=== PATIENT | male | born 1960 | race Caucasian/White ===

== ENCOUNTER 2019-11-15 11:32 | Outpatient (CLI) | payer MEDICARE, SELFPAY ==
--- NOTE | 2019-11-15 | USCV_ITS ---
Stress Echo Cheryl Clement Age: 59 Gender: M : 1960 Exam Date: 11/15/2019 12:03 Ordering Phys: Lashaun Gill MD ([email or web address]) Technologist: Anival Way [place] [facility] [place]ication: CHEST PAIN Rhythm: Atrial fibrillation Patient History: HTN, DLD, DM TYPE II, GERD, FORMER SMOKER Cardiac Medications: CCB/THAD/HCTZ/STATIN Medications in past 24 hours: Contrast: Stress Results Protocol: Jaiden Total dose(mL): Exercise Duration (min:sec): 5:30 METS: 7 Resting HR: 76 Resting BP: 157 / 70 Peak HR: 136 Peak BP: 237 / 70 Max Predicted HR: 159 86 % Max Predicted HR Target HR: 135 Double Product: [id number] Stress Summary: PATIENT WITH SOB WHILE ON THE TREADMILL. THIS RESOLVED DURING RECOVERY. HE ALSO STATED THAT HE HAD A LITTLE BURN IN HIS CHEST THAT ALSO RESOLVED DURING RECOVERY. BP Response: NORMAL Reason for Termination: TARGET HR REACHED Cardiac Symptoms: SOB, CHEST BURNING ECG Analysis Resting ECG: Stress ECG: Arrhythmia: MEASUREMENTS (Male/Female) Normal Values FINDINGS PROCEDURE: At the baseline, the patient's blood pressure was 157/70 mmHg with a heart rate of 87 bpm. The patient exercised for 5 minutes 30 seconds on a standard Jaiden protocol. Patient attained a maximum heart rate of 159 beats per minute(86 % of the maximum predicted heart rate) with a blood pressure at the peak exercise of 237/70 mm Hg. During the recovery phase, there were no new changes. Echocardiographic pictures were taken at the baseline, immediately following the peak exercise and during the recovery phase. Baseline echocardiogram: Normal left ventricular size and systolic function with ejection fraction estimated at 60 %. No regional wall motion abnormalities. Peak exercise echocardiogram: Normal augmentation of left ventricular systolic function with exercise. No new regional wall motion abnormalities. Recovery echocardiogram: Left ventricular systolic function normalizes. No regional wall motion abnormalities. CONCLUSIONS 1. This is a treadmill stress echocardiogram. 2. Decreased exercise tolerance, attained a maximum of 7 METs. Double product of 32,233. 3. Baseline hypertension with hypertensive response to exercise. 4. Normal echocardiographic response to exercise. 5. Positive EKG response to exercise with ischemic changes noted at peak stress. Lashaun Gill MD (Electronically Signed) Final Date: 17 November 2019 16:59 S
--- NOTE | 2019-11-15 11:52 | ECG_ITS ---
NAME OF STUDY: TREADMILL STRESS ECHOCARDIOGRAM INDICATION: Chest Pain Baseline blood pressure of 157/70 mm Hg, heart rate 78 beats per minute and oxygen saturation 97%. EKG showed normal sinus rhythm, normal axis with nonspecific T wave inversion in lead III, V4 to V6. The patient exercised for 5 minutes 30 seconds on a standard Jaiden protocol. Patient attained a maximum heart rate of 159 beats per minute(85 % of the maximum predicted heart rate) with a blood pressure at the peak exercise of 210/56 mm Hg and oxygen saturation of 91%. The EKG at the peak exercise revealed 1-2 mm horizontal to downsloping ST depression with T wave inversion in lead II, III, aVF, V4 to V6. Patient had burning chest discomfort and shortness of breath with exercise. Frequent PVCs noted during stress. During the recovery phase, there were no new changes. Blood pressure at the end of the recovery phase was 167/48 mm Hg with a heart rate of 90 beats per minute and oxygen saturation of 97%. CONCLUSION: 1. Ischemic EKG response to treadmill exercise. 2. There was exercise-induced chest pain and shortness of breath. 3. Decreased exercise tolerance, attained a maximum of 7 METs. 4. Baseline hypertension with hypertensive response to exercise. 5. Maximum VO2 of 24.5 mL/kg/min. 6. Echo portion of the study will be documented separately. Electronically Signed On 11-17-2019 16:49:28 CDT by Lashaun Gill M.D. [email or web address]
[2019-11-15 11:53] VITALS: BMI 31.1
[2019-11-15 12:53] VITALS: BP 167/48; PULSE 91
== END 2019-11-15 11:33 | disposition home or self-care (01) ==
LOC: CDL 11:38
PROVIDERS: Family Provider Family Medicine; PCP Family Medicine; Visit Provider Internal Medicine Cardiovascular Disease
DX: R07.9 Chest pain, unspecified (principal)
CPT/HCPCS: 93017; 93350

== ENCOUNTER → 2019-11-22 14:56 | Outpatient (BNVA) | payer MEDICARE, SELFPAY | PROVIDERS: Family Provider Family Medicine; PCP Family Medicine; Visit Provider Family Medicine | DX: E11.9 Type 2 diabetes mellitus without complications (principal) | CPT/HCPCS: 83036 ==

== ENCOUNTER 2019-11-24 07:44 | Day surgery (SDC) | payer MEDICARE, SELFPAY ==
[2019-11-24] VITALS (13 sets, daily range): BP systolic 126–159; BP diastolic 70–85; PULSE 64–74; RESP 17–18; TEMP 36.3–36.5; O2SAT 94–97; BMI 32.0
--- NOTE | 2019-11-24 08:49 | XACV_ITS ---
Exam Room: [facility] Ht: 196 cm Wt: 122 kg BSA: 2.61 m2 Gender: Male : 1960 Any Known Allergies: No known allergies Exam Priority: Routine Procedure(s): Procedure Description: Diagnostic procedure Procedure Description: Left Heart Catheterization Procedure Description: Left ventriculography Procedure Description: Coronary Angiography Diagnostic Cath Status: Elective Diagnostic Findings Patient with several risk factors and atypical chest discomfort. Treadmill stress testing was positive however stress echo did not show any ischemia. Patient recommended for angiography. Coronary angiography reveals right coronary artery dominance. The coronary anatomy is completely normal. Procedure done from the right radial artery. Interventional RX Recommendation: none Diagnostic RX Recommendation: none Anticoagulation: Heparin Ventriculography Ejection Fraction: 65.0 % Pressures Phase:Rest AO : 103 mmHg / 59 mmHg ( 80 mmHg ) @ 5:11:00 AM 107 mmHg / 60 mmHg ( 82 mmHg ) @ 5:12:00 AM 152 mmHg / 72 mmHg ( 105 mmHg ) @ 5:20:00 AM 152 mmHg / 72 mmHg ( 105 mmHg ) @ 5:20:00 AM LV : 178 mmHg / -7 mmHg / @ 5:19:00 AM 169 mmHg / -5 mmHg / @ 5:19:00 AM 174 mmHg / -9 mmHg / @ 5:19:00 AM 168 mmHg / -7 mmHg / @ 5:20:00 AM Valves Phase:DefaultPhase AV : 15.0 mmHg @ 10:27:03 AM AV Mean Gradient: 25.0 mmHg @ 10:27:03 AM Clinical Evaluation EBL: 5mL-10mL Procedural Details Procedure Consent Obtained. Pre-Procedure Time Out. Identified patient by full name and date of as verbalized by the patient/guarantor. Does the consent match the physician's order: Yes. Accurate & Complete Informed Consent: Yes. Inpatient/Outpatient History & Physical on Chart: Yes. If H&P is completed, is and addenduem needed: Yes; If yes, is the addendum complete: Yes. Relevant Radiology Images available: Yes. Pre-op teaching completed and patient verbalized understanding. The risks, benefits, and alternatives of sedation and/or procedure were discussed by physician. The patient agrees to continue. Procedure started. [facility] Clinical Fraility Score: 3: Managing Well. Silk Weaver Indications: Worsening Angina. Silk Weaver Indications: New Onset Angina. Chest Pain Symptom Assessment: Typical Angina Symptoms. Correct patient, site and procedure confirmed by cath team. Current diagnosis: Chest Pain. PERRLA. 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 Lungs clear x 5 lobes. IV Site on Arrival: 18 gauge in the right anticubital. IV Fluids: 0.9% NaCl at KVO. 0 mL infused prior to laborer bituminous paving. Oxygen started at 2liters/min via nasal canula. Baseline sample Acquired. HR: 72 BPM. Physician arrived. Current Diagnosis : Chest Pain. Patient's family unavailable due to visitor restrictions. Baseline sample Acquired. HR: 75 BPM. Physician scrubbed in. Immediate Pre-Procedure Time Out. Correct Patient: Yes; Correct Procedure: Yes; Correct Site: Yes; Correct Patient Position: Yes; Correct Supplies: Yes; Dried Flammable Prep: Yes; Blood Products Available: N/A;. Lidocaine 1% infiltrated to the right radial. Arterial access obtained. A 6 tristanian TIG catheter in over wire. Blood is being drawn from the radial sheath by Dr. Arenas to send to lab. Lab arrived. Multiple views taken of left coronary artery. Catheter redirected to the RCA. Multiple views taken of right coronary artery. Catheter removed over the exchange wire. A 6 tristanian Angled Pig catheter in over wire. EDP Sample taken: LV 178/-8,26; HR: 79 BPM; SpO2: 97%. EDP Sample taken: LV 169/-6,27; HR: 80 BPM; SpO2: 98%. LV gram performed in LIAO @ 10 mL/second for a total of 30 mL. EDP Sample taken: LV 174/-10,27; HR: 76 BPM; SpO2: 97%. Pullback taken: LV 168/-8,23; AO 152/72(105); Mean: 25mmHg, Peak to Peak: 15mmHg, SEP: 8sec/min; HR: 79 BPM; SpO2: 97%. Catheter removed over the exchange wire. Dr. Arenas scrubbed out. TR band placed. Hemostasis obtained. A TR Band was successful obtaining hemostatsis at the Right Radial artery insertion site. Post Procedure: Pulses reassessed and unchanged. PERRLA. 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 No VTE prophylaxis required. Medication's Wasted: Lidocaine 1% = 18 mL. Medication's Wasted: Nitro = 49.8 mg. Medication's Wasted: Heparin = 1000 units. Total IV fluids: 50 mL. Contrast type used: Omnipaque 300 mgI/mL, 500 mL bottle. Post-op diagnosis: Chest Pain. Complications: None. Estimated blood loss: 5mL-10mL. Procedure completed. Patient transferred by wheelchair to [address] [place] [address]. Vital chart was stopped. Site: Right Radial artery Sheath Size: 6 Fr Hemostasis Method: TR Band Hemostasis Success: Successful Procedure Medications Start: 9:53 AM Stop: 9:53 AM Medication: Versed 1 mg and Fentanyl 25 mcg Amount: 1 Route: I.V. Start: 9:53 AM Stop: 9:53 AM Medication: Fentanyl Amount: 25 mcg Start: 9:55 AM Stop: 9:55 AM Medication: Fentanyl Amount: 25 mcg Start: 9:55 AM Stop: 9:55 AM Medication: Versed 1 mg and Fentanyl 25 mcg Amount: 1 Route: I.V. Start: 9:59 AM Stop: 9:59 AM Medication: Versed Amount: 1 mg Route: I.V. Start: 10:07 AM Stop: 10:07 AM Medication: Nitrogylcerin Amount: 200 mcg Start: 10:07 AM Stop: 10:07 AM Medication: Verapamil Amount: 5 mg Route: I.A. Start: 10:08 AM Stop: 10:08 AM Medication: Versed Amount: 1 mg Route: I.V. Start: 10:08 AM Stop: 10:08 AM Medication: Heparin Amount: 5000 units Route: I.V. I, the attending physician, have reviewed and verified all procedure medications. Yes, all medications given per verbal order History/Risk Factors Hypertension: Yes Dyslipidemia: Yes Diabetic Therapy: Oral Peripheral Arterial Disease (PAD): No Myocardial Infarction (TN): No Obesity: No Renal Disease: No Tobacco Use: Former Prior Interventions PCI: No CABG: No Valve Surgery: No Report Signatures Finalized by:Dr. Miguel Angel Arenas MD on 11/24/2019 10:33:43 AM
[2019-11-24] MEDS: sodium chloride 0.9% 1,000 ML 50 ML IV (09:35)
[2019-11-24] MEDS: diphenhydrAMINE 50 mg Capsule PO (09:35)
--- NOTE | 2019-11-24 09:43 | PM.HP ---
Providers/Chief Complaint Admitting Physician: Deepa Primary Care Provider: Js Rdz DO Chief Complaint: Abnormal Stress Test History of Present Illness Cheryl Clement is a 59 year old male who presents as an outpatient today for cardiac catheterization. He saw Dr. Gill on the of last month as a new patient. He has hypertension and diabetes with dyslipidemia. He was having exertional chest pain and shortness of breath. He had just recovered from a bout of acute bronchitis. He underwent a stress echo on the of this month. The echo portion was read as normal however the EKG portion was read as abnormal. Therefore, he was referred for coronary angiography. Review of Systems General: Reports: 10 or more systems reviewed and unremarkable except in HPI and below Medications/Allergies Home Medications Medication Instructions Recorded Confirmed Last Taken Type amlodipine 10 mg tablet 10 mg PO DAILY #90 tab 09/14/19 11/23/19 Unknown Rx aluminum-mag hydroxide-simethicone 5 ml PO QID PRN 10/06/19 11/23/19 Unknown History 400 mg-400 mg-40 mg/5 mL oral susp atorvastatin 10 mg tablet 10 mg PO DAILY 10/06/19 11/23/19 Unknown History benazepril 40 mg tablet 80 mg PO DAILY 10/06/19 11/23/19 Unknown History cholecalciferol (vitamin D3) 1,250 1,250 mcg PO .weekly cap 10/06/19 11/23/19 Unknown History mcg (50,000 unit) capsule glyburide 5 mg tablet 10 mg PO BID tab 10/06/19 11/23/19 Unknown History metformin 1,000 mg tablet 1,000 mg PO BID 10/06/19 11/23/19 Unknown History pioglitazone 15 mg tablet 15 mg PO DAILY 10/06/19 11/23/19 Unknown History nitroglycerin 0.4 mg sublingual 0.4 mg SUBLINGUAL Q5M PRN #1 pkg 11/18/19 11/23/19 Unknown Rx tablet hydrochlorothiazide 12.5 mg PO DAILY 11/23/19 11/23/19 Unknown History Allergies Allergy/AdvReac Type Severity Reaction Status Date / Time No Known Allergies Allergy Verified 10/31/19 09:48 PFSH Acute PFSH: Medical History (Updated 11/24/19 @ 09:46 by Miguel Angel Arenas MD) Acid reflux Back pain Claustrophobia Diabetes Hyperlipidemia Hypertension Insomnia Positive cardiac stress test Social History Smoking and tobacco status: former smoker Quit status (tobacco): has quit using tobacco Year quit tobacco: 1979 Alcohol intake: never Vitals/I&O/Wt Last Vital Signs Temp 97.4 F L 11/24/19 08:31 Pulse 71 11/24/19 08:31 Resp 17 11/24/19 08:31 BP 137/85 11/24/19 08:31 Pulse Ox 97 11/24/19 08:31 Weight last 48 hrs Weight 270 lb Physical Exam Narrative: EXAM NARRATIVE: GENERAL: In general he is comfortable at rest without pain HEENT: Exam within normal limits. NECK: Supple without jugular vein distention. The carotid upstroke is normal without bruits. BACK: Exam normal. LUNGS: Clear. HEART: Regular rate and rhythm. ABDOMEN: Benign without organomegaly or tenderness. EXTREMITIES: No edema. NEUROLOGIC: Exam normal. SKIN: Unremarkable. A&P Assessment and plan (1) Bronchitis: Status: Acute (2) Hypertension: Status: Acute (3) Hyperlipidemia: Status: Acute (4) Diabetes: Status: Acute (5) Positive cardiac stress test: Status: Acute Additional A&P Information Patient will undergo cardiac catheterization due to a history of chest pain and abnormal stress testing. Attestations Medical Necessity Statement*: Outpatient in a bed. 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
[2019-11-24 10:19] LABS: Basophils % 0.4 %; Eosinophils # 0.2 10^3/uL (0.0-0.8); Eosinophils % 2.8 %; Hematocrit 40.1 % (42.0-52.0); Hemoglobin 13.8 g/dL (11.7-16.6); Lymphocytes # 2.7 10^3/uL (0.8-4.8); Lymphocytes % 36.7 %; Mean Corpuscular HGB Conc 34.4 g/dL (30.0-36.0); Mean Corpuscular Hemoglobin 30.3 pg (28.0-34.0); Mean Corpuscular Volume 88.1 fL (80-94); Mean Platelet Volume 10.5 fL (7.4-10.4); Monocytes # 0.6 10^3/uL (0.2-0.9); Monocytes % 7.6 %; Neutrophils # 3.8 10^3/uL (1.8-7.7); Neutrophils % 52.4 %; Nucleated Red Blood Cells % 0 %; Platelet Count 243 10^3/cmm (130-400); Red Blood Count 4.55 10^6/uL (4.1-5.3); Red Cell Distribution Width 11.7 % (12.1-15.1); White Blood Count 7.2 10^3/uL (4.0-10.0)
--- NOTE | 2019-11-24 10:27 | W.PM.OPSUD ---
Surgery/Procedure H&P Update DATE OF PROCEDURE: November 24, 2019 DATE H&P PERFORMED: 11/24/19 H&P UPDATE INFORMATION: I have reviewed H&P completed within last 30 days, I have examined patient prior to procedure and No changes to prior documentation PLANNED PROCEDURE: Operation Date: 11/24/19 08:30 Proposed Procedures p Cardiac Catheterization(Left) - Miguel Angel Arenas MD PATIENT REASSESSED PRIOR TO SEDATION, WITH NO CHANGE NOTED: Yes PHYSICAL EXAM: alert, clear to auscultation bilaterally, regular rate & rhythm and operative site marked AIRWAY EVAL/ANESTHESIA PLAN: normal airway, ASA II, Risks, benefits & alternatives of sedation and/or procedure discussed and Patient agrees to continue as planned
[2019-11-24 10:32] LABS: Blood Urea Nitrogen 15 mg/dL (8-23); Calcium 9.4 mg/dL (8.5-10.5); Carbon Dioxide 27 mmol/L (22-29); Chloride 102 mmol/L (98-107); Glomerular Filtration Rate 114.6 mL/min (90-130); Glucose 190 mg/dL (65-115); Osmolality Calculated 287 mOsm/kg (285-295); Sodium 138 mmol/L (136-145)
[2019-11-24] MEDS: sodium chloride 0.9% 1,000 ML 100 ML IV (10:56)
== END 2019-11-24 13:35 | disposition home or self-care (01) ==
LOC: CCL 07:45 → MEDSURG 07:51
PROVIDERS: Family Provider Family Medicine; PCP Family Medicine; Visit Provider Internal Medicine Cardiovascular Disease
DX: R94.39 Abnormal result of other cardiovascular function study (principal); J40 Bronchitis, not specified as acute or chronic; I10 Essential (primary) hypertension; E78.5 Hyperlipidemia, unspecified; E11.9 Type 2 diabetes mellitus without complications; Z87.891 Personal history of nicotine dependence
CPT/HCPCS: 12345; 80048; 85025; 93452; C1769; C1887; C1894; J1644; J2001; J2250; J3010; J3490; J7030; Q0163; Q9967

== ENCOUNTER → 2019-11-30 09:37 | Outpatient (BNVA) | payer MEDICARE, SELFPAY | PROVIDERS: Family Provider Family Medicine; PCP Family Medicine; Visit Provider Nurse Practitioner Family | DX: E78.5 Hyperlipidemia, unspecified (principal); I10 Essential (primary) hypertension; Z68.31 Body mass index [BMI] 31.0-31.9, adult; E11.9 Type 2 diabetes mellitus without complications; E78.2 Mixed hyperlipidemia | CPT/HCPCS: 80053; 80061; 84439; 84443 ==

== ENCOUNTER → 2020-05-30 10:25 | Outpatient (BNVA) | payer MEDICARE, SELFPAY | PROVIDERS: Family Provider Family Medicine; PCP Family Medicine; Visit Provider Nurse Practitioner Family | DX: E11.9 Type 2 diabetes mellitus without complications (principal) | CPT/HCPCS: 83036 ==

== ENCOUNTER → 2020-07-17 09:00 | Outpatient (BNVA) | payer MEDICARE, SELFPAY | PROVIDERS: Family Provider Family Medicine; PCP Family Medicine; Visit Provider Family Medicine | DX: Z20.828 Contact with and (suspected) exposure to other viral communicable diseases (principal); R05 Cough | CPT/HCPCS: 87400; 87635 ==

== ENCOUNTER → 2020-09-07 09:00 | Outpatient (BNVA) | payer MEDICARE, SELFPAY | PROVIDERS: Family Provider Family Medicine; PCP Family Medicine; Visit Provider Nurse Practitioner Family | DX: E11.9 Type 2 diabetes mellitus without complications (principal); I10 Essential (primary) hypertension | CPT/HCPCS: 80053; 80061; 83036; 85025 ==

== ENCOUNTER → 2021-03-06 09:32 | Outpatient (BNVA) | payer MEDICARE, SELFPAY | PROVIDERS: Family Provider Family Medicine; PCP Family Medicine; Visit Provider Nurse Practitioner Family | DX: E11.9 Type 2 diabetes mellitus without complications (principal); E78.2 Mixed hyperlipidemia; I10 Essential (primary) hypertension; Z68.32 Body mass index [BMI] 32.0-32.9, adult | CPT/HCPCS: 80053; 80061; 83036 ==

== ENCOUNTER → 2021-06-18 15:52 | Outpatient (BNVA) | payer MEDICARE, SELFPAY | PROVIDERS: Family Provider Family Medicine; PCP Family Medicine; Visit Provider Nurse Practitioner Family | DX: R10.10 Upper abdominal pain, unspecified (principal); E11.9 Type 2 diabetes mellitus without complications | CPT/HCPCS: 80053; 82150; 83036; 83690; 85025 ==

== ENCOUNTER → 2021-08-23 11:56 | Outpatient (BNVA) | payer MEDICARE, SELFPAY | PROVIDERS: Family Provider Family Medicine; PCP Family Medicine; Visit Provider Nurse Practitioner Family | DX: R50.9 Fever, unspecified (principal) | CPT/HCPCS: 87400 ==

== ENCOUNTER → 2021-09-09 13:08 | Outpatient (BNVA) | payer MEDICARE, SELFPAY | PROVIDERS: Family Provider Family Medicine; PCP Family Medicine; Visit Provider Nurse Practitioner Family | DX: E11.9 Type 2 diabetes mellitus without complications (principal) | CPT/HCPCS: 83036 ==

== ENCOUNTER → 2021-12-09 09:59 | Outpatient (BNVA) | payer MEDICARE, SELFPAY | PROVIDERS: Family Provider Family Medicine; PCP Family Medicine; Visit Provider Nurse Practitioner Family | DX: I10 Essential (primary) hypertension (principal); E11.9 Type 2 diabetes mellitus without complications | CPT/HCPCS: 80053; 80061; 83036 ==

== ENCOUNTER → 2022-02-19 10:18 | Outpatient (BNVA) | payer MEDICARE, SELFPAY | PROVIDERS: Family Provider Family Medicine; PCP Family Medicine; Visit Provider Nurse Practitioner Family | DX: I10 Essential (primary) hypertension (principal); R01.1 Cardiac murmur, unspecified; Z87.891 Personal history of nicotine dependence | CPT/HCPCS: 99213; 99214 ==

== ENCOUNTER → 2022-03-10 09:12 | Outpatient (BNVA) | payer MEDICARE, SELFPAY | PROVIDERS: Family Provider Family Medicine; PCP Family Medicine; Visit Provider Nurse Practitioner Family | DX: E11.9 Type 2 diabetes mellitus without complications (principal); I10 Essential (primary) hypertension; E78.2 Mixed hyperlipidemia; Z68.32 Body mass index [BMI] 32.0-32.9, adult | CPT/HCPCS: 82043; 83036 ==

== ENCOUNTER 2022-06-05 08:02 | Outpatient (CLI) | payer MEDICARE, SELFPAY ==
--- NOTE | 2022-06-05 08:30 | USCV_ITS ---
Cheryl Clement Age: 62 Gender: M : 1960 Exam Date: 06/05/2022 09:10 Ordering Phys: Radha Rabago Technologist: Justus Crow [place] [facility] [place]: Systolic murmur BP: 172 / 68 HR: 67 Rhythm: Sinus Technical Quality: Adequate MEASUREMENTS (Male / Female) Normal Values 2D ECHO LV Diastolic Diameter PLAX 3.7 cm 4.2 - 5.9 / 3.9 - 5.3 cm LV Systolic Diameter PLAX 2.6 cm IVS Diastolic Thickness 1.1 cm 0.6 - 1.0 / 0.6 - 0.9 cm IVS Systolic Thickness 1.9 cm LVPW Diastolic Thickness 0.8 cm 0.6 - 1.0 / 0.6 - 0.9 cm LVPW Systolic Thickness 1.6 cm LVOT Diameter 2.0 cm LV Ejection Fraction 2D Teich 55.7 % LV Ejection Fraction MOD 2C 56.6 % LV Ejection Fraction 2C AL 65.7 % LA Diameter 4.0 cm LA Width 3.9 cm LA Height 5.2 cm RA Width 3.2 cm RA Height 5.3 cm Aorta at Sinotubular Diameter 2.6 cm M-MODE Aortic Annulus Diameter 2.6 cm LA Ao Ratio MM 1.6 MV E Point Septal Separation 0.6 cm DOPPLER AV Peak Velocity 236.3 cm/s LVOT Peak Velocity 117.0 cm/s AV Area Cont Eq vti 1.5 cm squared AV Area Cont Eq pk 1.6 cm squared MV Peak Velocity 98.0 cm/s MV Area PHT 3.3 cm squared Mitral E to A Ratio 0.8 MV E' Velocity 44.0 cm/s Mitral E to MV E' Ratio 12.9 Mitral E to LV E' Lateral Ratio 11.0 Mitral E to LV E' Septal Ratio 16.0 TR Peak Velocity 197.6 cm/s TR Peak Gradient 15.6 mmHg TR Mean Velocity 152.0 cm/s TR Mean Gradient 10.0 mmHg TR Velocity Time Integral 43.9 cm Right Atrial Pressure 8.0 mmHg Pulmonary Artery Systolic Pressu 23.6 mmHg PV Peak Velocity 92.0 cm/s RV Acceleration Time 0.1 s RV Ejection Time 0.3 s RV AcT/ET 0.4 FINDINGS Left Ventricle Normal left ventricular size, systolic function and wall thickness, with no regional wall motion abnormalities. Left ventricular ejection fraction is estimated at 65 %. Grade II diastolic dysfunction, moderately elevated filling pressures. Right Ventricle Normal right ventricular size and systolic function. Right ventricular systolic pressure 23.6 mmHg. Right Atrium Normal right atrial size. Left Atrium Normal left atrial size. Mitral Valve Mild mitral annular calcification. Mildly thickened mitral valve. No mitral valve stenosis. Trace mitral valve regurgitation. Aortic Valve Mildly thickened and calcified trileaflet aortic valve. Mild aortic valve stenosis, peak velocity 2.4 m/s, peak gradient 23 mm Hg, mean gradient 12 mmHg, NGUYEN 1.5 cm squared. Trace aortic valve regurgitation. Tricuspid Valve Structurally normal tricuspid valve. No tricuspid valve stenosis. Trace tricuspid valve regurgitation. Pulmonic Valve Pulmonic valve not well visualized. No pulmonary valve stenosis. Trace pulmonary valve regurgitation. Pericardium No pericardial effusion. Aorta Normal size aortic root and proximal ascending aorta. IVC Inferior vena cava not visualized. CONCLUSIONS 1. Normal left ventricular size, systolic function and wall thickness, with no regional wall motion abnormalities. Left ventricular ejection fraction is estimated at 65 %. Grade II diastolic dysfunction, moderately elevated filling pressures. 2. Mild aortic valve stenosis, peak velocity 2.4 m/s, peak gradient 23 mm Hg, mean gradient 12 mmHg, NGUYEN 1.5 cm squared. Trace aortic valve regurgitation. 3. No prior similar studies to compare. Lashaun Gill MD (Electronically Signed) Final Date: 08 June 2022 11:14 S
== END 2022-06-05 08:03 | disposition home or self-care (01) ==
LOC: RAD 08:03
PROVIDERS: PCP Family Medicine; Visit Provider Nurse Practitioner Family
DX: R01.1 Cardiac murmur, unspecified (principal); I35.0 Nonrheumatic aortic (valve) stenosis; I51.89 Other ill-defined heart diseases
CPT/HCPCS: 93306

== ENCOUNTER → 2022-06-10 09:44 | Outpatient (BNVA) | payer MEDICARE, SELFPAY | PROVIDERS: Family Provider Family Medicine; PCP Family Medicine; Visit Provider Nurse Practitioner Family | DX: E11.9 Type 2 diabetes mellitus without complications (principal); I10 Essential (primary) hypertension; Z23 Encounter for immunization | CPT/HCPCS: 80053; 80061; 83036 ==

== ENCOUNTER → 2022-07-09 12:01 | Outpatient (BNVA) | payer MEDICARE, SELFPAY | PROVIDERS: Family Provider Family Medicine; PCP Family Medicine; Visit Provider Nurse Practitioner Family | DX: R05.9 Cough, unspecified (principal) | CPT/HCPCS: 71046 ==

== ENCOUNTER → 2022-08-19 11:17 | Outpatient (BNVA) | payer MEDICARE, SELFPAY | PROVIDERS: Family Provider Family Medicine; PCP Family Medicine; Visit Provider Internal Medicine Cardiovascular Disease | DX: I10 Essential (primary) hypertension (principal); Z87.891 Personal history of nicotine dependence | CPT/HCPCS: 99214; Q3014 ==

== ENCOUNTER → 2023-02-23 16:12 | Outpatient (BNVA) | payer MEDICARE, SELFPAY | PROVIDERS: Family Provider Family Medicine; PCP Family Medicine; Visit Provider Family Medicine | DX: I10 Essential (primary) hypertension (principal); I35.0 Nonrheumatic aortic (valve) stenosis; E11.9 Type 2 diabetes mellitus without complications; B34.9 Viral infection, unspecified; E78.5 Hyperlipidemia, unspecified | CPT/HCPCS: 80053; 85025 ==

== ENCOUNTER → 2023-03-03 15:37 | Outpatient (BNVA) | payer MEDICARE, SELFPAY | PROVIDERS: Family Provider Family Medicine; PCP Family Medicine; Visit Provider Internal Medicine Cardiovascular Disease | DX: I10 Essential (primary) hypertension (principal); I35.0 Nonrheumatic aortic (valve) stenosis; R06.02 Shortness of breath; G47.10 Hypersomnia, unspecified; E78.2 Mixed hyperlipidemia; E11.9 Type 2 diabetes mellitus without complications; K21.00 Gastro-esophageal reflux disease with esophagitis, without bleeding; Z87.891 Personal history of nicotine dependence; Z79.4 Long term (current) use of insulin | CPT/HCPCS: 99214 ==

== ENCOUNTER 2023-03-11 09:38 | Outpatient (CLI) | payer MEDICARE, SELFPAY ==
--- NOTE | 2023-03-11 10:00 | USCV_ITS ---
Cheryl Clement Age: 62 Gender: M : 1960 Exam Date: 03/11/2023 10:11 Ordering Phys: Lashaun Gill MD ([email or web address]) Technologist: CT Exam Location: [facility] Indication: Shortness of breath BP: 130 / 77 HR: 67 Rhythm: Sinus Technical Quality: Adequate MEASUREMENTS (Male / Female) Normal Values 2D ECHO LV Chamber Size 4.6 cm RV Chamber Size 4.4 cm LVOT Diameter 2.0 cm LV Ejection Fraction MOD 2C 36.7 % LV Ejection Fraction 2C AL 35.4 % LA Diameter 5.3 cm LA Width 3.5 cm LA Height 5.9 cm RA Width 4.7 cm RA Height 4.9 cm Aorta at Sinotubular Diameter 3.3 cm M-MODE Aortic Annulus Diameter 3.7 cm LA Ao Ratio MM 1.5 MV E Point Septal Separation 0.8 cm DOPPLER AV Peak Velocity 245.0 cm/s LVOT Peak Velocity 118.0 cm/s AV Area Cont Eq vti 1.7 cm squared AV Area Cont Eq pk 1.5 cm squared MV Peak Velocity 103.0 cm/s MV Area PHT 3.1 cm squared Mitral E to A Ratio 0.9 MV E' Velocity 39.0 cm/s Mitral E to MV E' Ratio 11.8 Mitral E to LV E' Lateral Ratio 11.8 Mitral E to LV E' Septal Ratio 11.8 TR Peak Velocity 163.0 cm/s TR Peak Gradient 10.6 mmHg TV Peak E Velocity 95.0 cm/s Right Atrial Pressure 3.0 mmHg Pulmonary Artery Systolic Pressu 13.6 mmHg PV Peak Velocity 113.0 cm/s FINDINGS Left Ventricle Normal left ventricular size and systolic function with no regional wall motion abnormalities. Left ventricular ejection fraction is estimated at 65 %. Normal diastolic function. Right Ventricle Normal right ventricular size and systolic function. Right ventricular systolic pressure 13.6 mmHg. Right Atrium Normal right atrial size. Left Atrium Normal left atrial size. Mitral Valve Mild mitral annular calcification. No mitral valve stenosis. Trace mitral valve regurgitation. Aortic Valve Aortic valve not well visualized. Mild aortic valve stenosis, peak velocity 2.7 m/s, peak gradient 29 mm Hg, mean gradient 14.3 mmHg, NGUYEN 1.7 cm squared. No aortic valve regurgitation. Tricuspid Valve Structurally normal tricuspid valve. No tricuspid valve stenosis. Trace tricuspid valve regurgitation. Pulmonic Valve Pulmonic valve not well visualized. No pulmonary valve stenosis. Trace pulmonary valve regurgitation. Pericardium No pericardial effusion. Aorta Normal size aortic root and proximal ascending aorta. IVC Inferior vena cava not visualized. CONCLUSIONS 1. Normal left ventricular size and systolic function with no regional wall motion abnormalities. Left ventricular ejection fraction is estimated at 65 %. Normal diastolic function. 2. Mild aortic valve stenosis, peak velocity 2.7 m/s, peak gradient 29 mm Hg, mean gradient 14.3 mmHg, NGUYEN 1.7 cm squared. 3. No significant change when compared to study dated 06/05/2022. Lashaun Gill MD (Electronically Signed) Final Date: 18 March 2023 15:22 S
== END 2023-03-11 09:39 | disposition home or self-care (01) ==
PROVIDERS: PCP Family Medicine; Visit Provider Internal Medicine Cardiovascular Disease
DX: I35.0 Nonrheumatic aortic (valve) stenosis (principal); R06.02 Shortness of breath
CPT/HCPCS: 93306

== ENCOUNTER 2023-05-04 20:00 | Outpatient (CLI) | payer MEDICARE, SELFPAY | END 2023-05-04 20:01 | disposition home or self-care (01) | LOC: SLEEP 05-05 05:11 | PROVIDERS: PCP Family Medicine; Visit Provider Internal Medicine Cardiovascular Disease | DX: G47.33 Obstructive sleep apnea (adult) (pediatric) (principal); G47.10 Hypersomnia, unspecified; R06.02 Shortness of breath | CPT/HCPCS: 95810 ==

== ENCOUNTER → 2023-08-19 09:17 | Outpatient (BNVA) | payer MEDICARE, SELFPAY | PROVIDERS: PCP Family Medicine; Visit Provider Nurse Practitioner Family | DX: I10 Essential (primary) hypertension (principal); Z87.891 Personal history of nicotine dependence | CPT/HCPCS: 99213 ==

== ENCOUNTER → 2023-10-16 11:53 | Outpatient (BNVA) | payer MEDICARE, SELFPAY | PROVIDERS: PCP Family Medicine; Visit Provider Nurse Practitioner Family | DX: J34.89 Other specified disorders of nose and nasal sinuses (principal) | CPT/HCPCS: 87400; 87426 ==

== ENCOUNTER → 2023-12-07 10:15 | Outpatient (BNVA) | payer MEDICARE, SELFPAY | PROVIDERS: PCP Family Medicine; Visit Provider Nurse Practitioner Family | DX: E78.2 Mixed hyperlipidemia (principal); E55.9 Vitamin D deficiency, unspecified; E11.9 Type 2 diabetes mellitus without complications; I10 Essential (primary) hypertension | CPT/HCPCS: 80053; 80061; 82306; 83036 ==

== ENCOUNTER 2024-03-22 06:00 | Outpatient (RCR) | payer MEDICARE, SELFPAY | END 2024-04-07 09:35 | disposition home or self-care (01) | LOC: GPT 06:00 | PROVIDERS: Visit Provider Nurse Practitioner Family | DX: M54.9 Dorsalgia, unspecified (principal) | CPT/HCPCS: 97110; 97112; 97140; 97162 ==

== ENCOUNTER 2024-04-03 06:00 | Outpatient (RCR) | payer MEDICARE, SELFPAY | END 2024-05-02 23:59 | disposition home or self-care (01) | LOC: GPT 06:00 | PROVIDERS: Visit Provider Nurse Practitioner Family | DX: M54.9 Dorsalgia, unspecified (principal) | CPT/HCPCS: 97110; 97112; 97140; 97530 ==

== ENCOUNTER 2024-05-03 06:00 | Outpatient (RCR) | payer MEDICARE, SELFPAY | END 2024-06-02 23:59 | disposition home or self-care (01) | LOC: GPT 06:00 | PROVIDERS: Visit Provider Nurse Practitioner Family | DX: M54.9 Dorsalgia, unspecified (principal) | CPT/HCPCS: 97110; 97112; 97140; 97164; 97530 ==

== ENCOUNTER → 2024-06-06 09:25 | Outpatient (BNVA) | payer MEDICARE, SELFPAY | PROVIDERS: PCP Family Medicine; Visit Provider Nurse Practitioner Family | DX: I10 Essential (primary) hypertension (principal); E11.9 Type 2 diabetes mellitus without complications | CPT/HCPCS: 80053; 80061; 83036 ==

== ENCOUNTER → 2024-08-08 13:13 | Outpatient (BNVA) | payer MEDICARE, SELFPAY | PROVIDERS: PCP Family Medicine; Visit Provider Internal Medicine | DX: I10 Essential (primary) hypertension (principal); I35.0 Nonrheumatic aortic (valve) stenosis; E78.2 Mixed hyperlipidemia; E11.9 Type 2 diabetes mellitus without complications; K21.00 Gastro-esophageal reflux disease with esophagitis, without bleeding | CPT/HCPCS: 99214 ==

== ENCOUNTER 2024-08-15 07:15 | Outpatient (CLI) | payer MEDICARE, SELFPAY ==
--- NOTE | 2024-08-15 07:15 | USCV_ITS ---
Cheryl Clement Age: 64 Gender: M : 1960 Exam Date: 08/15/2024 07:40 Ordering Phys: Maximilian Ocampo M.D ([email or web address]) Technologist: Exam Location: [facility] – [place] Indication: as BP: 143 / 75 HR: 83 Rhythm: Sinus Technical Quality: Adequate MEASUREMENTS (Male / Female) Normal Values 2D ECHO LV Diastolic Diameter PLAX 4.9 cm 4.2 - 5.9 / 3.9 - 5.3 cm IVS Diastolic Thickness 1.0 cm 0.6 - 1.0 / 0.6 - 0.9 cm IVS Systolic Thickness 1.6 cm LVPW Diastolic Thickness 1.1 cm 0.6 - 1.0 / 0.6 - 0.9 cm LVPW Systolic Thickness 1.8 cm LVOT Diameter 2.0 cm LV Ejection Fraction 2D Teich 67.9 % LV Ejection Fraction MOD 4C 68.6 % LV Ejection Fraction MOD 2C 51.7 % LV Ejection Fraction 2C AL 55.4 % LA Diameter 4.8 cm RA Systolic Volume 4C AL 48.7 ml RA Systolic Volume 4C MOD 47.8 ml LA Sys Volume AL 63.7 cm cubed LA Sys Volume Index AL 25.5 cm cubed/m squared Aorta at Sinotubular Diameter 3.6 cm DOPPLER AV Peak Velocity 257.0 cm/s LVOT Peak Velocity 78.0 cm/s AV Area Cont Eq vti 1.1 cm squared AV Area Cont Eq pk 1.0 cm squared MV Peak Velocity 108.0 cm/s MV Area PHT 3.7 cm squared Mitral E to A Ratio 1.0 TV Peak Velocity 218.5 cm/s TR Peak Velocity 291.0 cm/s TR Peak Gradient 33.9 mmHg TV Peak E Velocity 95.0 cm/s PV Peak Velocity 130.0 cm/s FINDINGS Left Ventricle Left ventricle is normal in size. LV systolic function is normal with EF of 60-65%. No regional wall motion abnormalities. Right Ventricle Normal in size and function Right Atrium Normal in size Left Atrium Normal in size Mitral Valve Structurally normal mitral valve. Mild mitral regurgitation Aortic Valve Aortic valve is thickened. Mild aortic stenosis with aortic valve area of 1.1cm 2 and mean gradient across aortic valve of 12mmHg. Tricuspid Valve Insufficient TR jet to calculate RVSP Pulmonic Valve Not well visualized Pericardium Normal Aorta Mildly dilated ascending aorta with diameter of 3.5cm IVC Not visualized CONCLUSIONS LV systolic function is normal with EF of 60-65% Mild mitral regurgitation Mild aortic stenosis Mildly dilated ascending aorta with diameter of 3.5cm Maximilian Ocampo MD (Electronically Signed) Final Date: 22 August 2024 19:23 S
== END 2024-08-15 07:26 | disposition home or self-care (01) ==
PROVIDERS: PCP Family Medicine; Visit Provider Internal Medicine
DX: I35.0 Nonrheumatic aortic (valve) stenosis (principal); I34.0 Nonrheumatic mitral (valve) insufficiency; I35.8 Other nonrheumatic aortic valve disorders; I77.819 Aortic ectasia, unspecified site
CPT/HCPCS: 93306

== ENCOUNTER → 2024-08-23 12:08 | Outpatient (BNVA) | payer MEDICARE, SELFPAY | PROVIDERS: PCP Nurse Practitioner Family; Visit Provider Nurse Practitioner Family | DX: M25.511 Pain in right shoulder (principal); W19.XXXA Unspecified fall, initial encounter | CPT/HCPCS: 72110; 73030 ==

== ENCOUNTER → 2024-09-06 10:42 | Outpatient (BNVA) | payer MEDICARE, SELFPAY | PROVIDERS: PCP Nurse Practitioner Family; Visit Provider Orthopaedic Surgery | DX: M43.06 Spondylolysis, lumbar region (principal); M54.50 Low back pain, unspecified; G89.29 Other chronic pain; M54.9 Dorsalgia, unspecified; M48.062 Spinal stenosis, lumbar region with neurogenic claudication | CPT/HCPCS: 99204 ==

== ENCOUNTER → 2024-09-08 09:53 | Outpatient (BNVA) | payer MEDICARE, SELFPAY | PROVIDERS: PCP Nurse Practitioner Family; Referring Provider Orthopaedic Surgery; Visit Provider Nurse Practitioner Family | DX: M43.06 Spondylolysis, lumbar region (principal); G89.29 Other chronic pain; M54.42 Lumbago with sciatica, left side; M48.062 Spinal stenosis, lumbar region with neurogenic claudication; R93.7 Abnormal findings on diagnostic imaging of other parts of musculoskeletal system; Z87.891 Personal history of nicotine dependence | CPT/HCPCS: 99214 ==

== ENCOUNTER → 2024-09-20 09:28 | Outpatient (BNVA) | payer MEDICARE, SELFPAY | PROVIDERS: PCP Nurse Practitioner Family; Visit Provider Nurse Practitioner Family | DX: M79.18 Myalgia, other site (principal); M43.06 Spondylolysis, lumbar region; M48.062 Spinal stenosis, lumbar region with neurogenic claudication; M54.42 Lumbago with sciatica, left side; G89.29 Other chronic pain; R93.7 Abnormal findings on diagnostic imaging of other parts of musculoskeletal system; Z87.891 Personal history of nicotine dependence | CPT/HCPCS: 20553; 99214; J1010; J3490 ==

== ENCOUNTER → 2024-10-04 09:33 | Outpatient (BNVA) | payer MEDICARE, SELFPAY | PROVIDERS: PCP Nurse Practitioner Family; Visit Provider Nurse Practitioner Family | DX: G89.29 Other chronic pain (principal); M54.42 Lumbago with sciatica, left side; M43.06 Spondylolysis, lumbar region; M48.062 Spinal stenosis, lumbar region with neurogenic claudication; R93.7 Abnormal findings on diagnostic imaging of other parts of musculoskeletal system; Z87.891 Personal history of nicotine dependence | CPT/HCPCS: 99213 ==

== ENCOUNTER → 2024-10-12 14:11 | Outpatient (BNVA) | payer MEDICARE, SELFPAY | PROVIDERS: PCP Nurse Practitioner Family; Visit Provider Anesthesiology Pain Medicine | DX: M54.16 Radiculopathy, lumbar region (principal); M54.50 Low back pain, unspecified; G89.29 Other chronic pain; E11.9 Type 2 diabetes mellitus without complications; Z01.818 Encounter for other preprocedural examination | CPT/HCPCS: 36416; 64483; 64484; 82962 ==

== ENCOUNTER → 2024-10-31 14:48 | Outpatient (BNVA) | payer MEDICARE, SELFPAY | PROVIDERS: PCP Nurse Practitioner Family; Visit Provider Anesthesiology Pain Medicine | DX: M43.06 Spondylolysis, lumbar region (principal); G89.29 Other chronic pain; M54.42 Lumbago with sciatica, left side; M48.062 Spinal stenosis, lumbar region with neurogenic claudication; R93.7 Abnormal findings on diagnostic imaging of other parts of musculoskeletal system | CPT/HCPCS: 99214 ==

== ENCOUNTER → 2024-12-06 10:29 | Outpatient (BNVA) | payer MEDICARE, SELFPAY | PROVIDERS: PCP Nurse Practitioner Family; Visit Provider Orthopaedic Surgery | DX: M48.062 Spinal stenosis, lumbar region with neurogenic claudication (principal) | CPT/HCPCS: 36415; 80053; 81001; 85025; 99214 ==

== ENCOUNTER 2024-12-21 09:25 | Day surgery (SDC) | payer MEDICARE, SELFPAY ==
[2024-12-21] VITALS (11 sets, daily range): BP systolic 112–157; BP diastolic 59–79; PULSE 56–76; RESP 16–18; TEMP 36.1–36.5; O2SAT 95–97; BMI 34.7
[2024-12-21] MEDS: sodium chloride 0.9% 1,000 ML 30 ML IV (09:55)
--- NOTE | 2024-12-21 10:48 | ANES.PREANE2 ---
Pre-Anesthetic Assessment Height/Weight: Height 6 ft 5 in Weight 293 lb Temp Pulse Resp BP Pulse Ox O2 Del Method 97.7 F 68 18 157/79 97 Room Air 12/21/24 09:40 12/21/24 09:40 12/21/24 09:40 12/21/24 09:40 12/21/24 09:40 12/21/24 09:41 Preop Diagnosis: Lumbar stenosis with neurogenic claudication Operation Date: 12/21/24 12:15 Proposed Procedures p Lumbar Spine Decompression(Not Applicable) - Hank Felix, DO Was Beta Mariah taken within 24 hours: Yes Was Clonidine taken within 24 hours: N/A Last intake: Intake Last Liquid Date 12/20/24 Last Liquid Time 23:58 Last Solid Date 12/20/24 Last Solid Time 19:00 Social Tobacco and No alcohol Exam alert, oriented x 3, clear to auscultation bilaterally and regular rate & rhythm Airway Submandibular: within normal limits Cervical ROM: Other (Very limited neck mobility) Mallampati: Class III Comments: Comments: Decaying bottom teeth, denies any loose Anesthetic Plan ASA status: 3 Anesthesia: General Other: No prior issues with anesthesia N.p.o. since yesterday evening History of hypertension on amlodipine, hydrochlorothiazide, valsartan and carvedilol History of GERD on omeprazole Takes liraglutide for diabetes, takes this daily. Held his dose today YESSENIA, no CPAP Labs reviewed from 12/06/2024 and acceptable for procedure EF 60 to 65% Plan for GETA with video laryngoscopy Medications/Allergies Home Medications ?Medication ?Instructions ?Recorded ?Confirmed ?Last Taken ?Type nitroglycerin 0.4 mg sublingual 0.4 mg sublingual Q5M PRN chest 11/18/19 12/20/24 Unknown Rx tablet pain #1 pkg cholecalciferol (vitamin D3) 1,250 1,250 mcg PO .weekly #60 caps 07/23/20 12/20/24 Unknown Rx mcg (50,000 unit) capsule ibuprofen 200 mg tablet 200 mg PO Q6H PRN Pain 02/19/22 12/20/24 Unknown History Held on 02/24/24. Instructions: Doctor's Order omeprazole 40 mg capsule,delayed 40 mg PO BID 03/03/23 12/20/24 12/20/24 History release pen needle, diabetic 32 gauge x #100 ea 11/16/23 12/06/24 Unknown Rx (TechLITE Pen Needle) pioglitazone 15 mg tablet (Actos) 15 mg PO DAILY #30 tabs 03/08/24 12/20/24 12/20/24 Rx glyburide 5 mg tablet See Rx Instructions .Route 03/25/24 12/20/24 12/20/24 Rx .COMPLEX #360 tabs carvedilol 12.5 mg tablet See Rx Instructions .Route 04/08/24 12/20/24 12/20/24 Rx .COMPLEX #225 tabs liraglutide 0.6 mg/0.1 mL (18 mg/3 See Rx Instructions .Route 08/21/24 12/20/24 12/20/24 Rx mL) subcutaneous pen injector .COMPLEX #6 mL (Victoza 3-Yoni) amlodipine 10 mg tablet 10 mg PO DAILY #90 tabs 08/31/24 12/20/24 12/20/24 Rx valsartan 160 mg tablet See Rx Instructions .Route 08/31/24 12/20/24 12/20/24 Rx .COMPLEX #180 tabs atorvastatin 10 mg tablet 10 mg PO DAILY #90 tabs 09/07/24 12/20/24 12/20/24 Rx cyclobenzaprine 10 mg tablet 10 mg PO TID PRN muscle spasm #90 09/08/24 12/20/24 Unknown Rx tabs hydrochlorothiazide 25 mg tablet 37.5 mg (1.5 x 25 mg) PO DAILY 11/02/24 12/20/24 12/20/24 Rx #135 tabs Allergies Allergy/AdvReac Type Severity Reaction Status Date / Time No Known Allergies Allergy Verified 11/22/24 12:52 Current Medications Generic Name Dose Route Start Last Admin Trade Name Freq PRN Reason Stop Dose Admin Sodium Chloride 1,000 mls @ 30 mls/hr 12/21/24 09:30 12/21/24 09:55 Sodium Chloride 0.9% IV 12/22/24 09:29 30 mls/hr .Q24H ASHLI Administration PFSH Anesthesia Medical History Positive cardiac stress test Acid reflux Back pain Claustrophobia Diabetes Insomnia Hyperlipidemia Hypertension Family History Father CHF (NYHA class IV, ACC/AHA stage D) Social History Smoking and tobacco/nicotine status: former use of tobacco/nicotine Quit status (tobacco/nicotine): has quit using Year quit tobacco: 1979 Alcohol intake: never Data Anesthesia Cardiac Studies: Echocardiogram 08/15/24 Stress Echocardiogram 11/15/19
--- NOTE | 2024-12-21 11:28 | W.PM.OPSUD ---
Surgery/Procedure H&P Update DATE OF PROCEDURE: December 21, 2024 DATE H&P PERFORMED: 12/06/24 H&P UPDATE INFORMATION: I have reviewed H&P completed within last 30 days, I have examined patient prior to procedure and No changes to prior documentation PREOP DIAGNOSIS: Lumbar stenosis with neurogenic claudication PLANNED PROCEDURE: Operation Date: 12/21/24 12:15 Proposed Procedures p Lumbar Spine Decompression(Not Applicable) - Hank Felix DO
[2024-12-21] MEDS: ceFAZolin 3,000 MG in sodium chloride 0.9% (plus) 100 ML 200 MG IV (12:14)
[2024-12-21] MEDS: lidocaine-epi 1% 20 mL INJ 10 ML INJECTION (12:54)
--- NOTE | 2024-12-21 13:58 | XR_ITS ---
WS: [id number] Lumbar spine, C-arm fluoroscopy views, 12/21/2024 Clinical Data: or pic, decompression Comparison: Lumbar spine, 08/23/2024 Findings: Dr. Felix performed a lumbar decompression XR/XR lumbar spine 1V [id number] Impression: Lumbar decompression.
--- NOTE | 2024-12-21 13:59 | PM.OP ---
Operative Report Date of procedure: December 21, 2024 Pre-op diagnosis: Lumbar stenosis with neurogenic claudication Post-op diagnosis: same Procedure done: 1. L3-4 laminectomy with partial facetectomy 2. L4-5 laminectomy with partial facetectomy Surgeon: Hank Felix DO Estimated blood loss (mL): 25 Procedure: 1. L3-4 laminectomy with partial facetectomy 2. L4-5 laminectomy with partial facetectomy Patient is brought to the operative suite. After undergoing anesthesia they are placed in the prone position. All areas of impingement are well padded. Patient is then prepped and draped in the normal sterile fashion. A skin incision is made over the L3/4 level. This is confirmed under c-arm guidance. A series of dilators are passed and the tubular retractor is docked on the L3 lamina. A bovie is used to clear the soft tissue off the lamina and the L 3/4 facet joint. A high speed carline is then used to perform the laminectomy and take down the medial aspect of the L 3/4 facet joint. A kerrison rongeure was then used to take down the remaining lamina and smooth the edge of the laminectomy up to the point where the ligamentum flavum attaches. Attention was then brought to the medial aspect of the facet joint. The remaining medial aspect of the superior and inferior aspect of the facet joint were taken down with the kerrison from the pedicle of L3 to L 4. The facet joint had significant hypertrophy. Attention was then brought to the Ligamentum Flavum. The ligament was taken down from the lamina of L3 to L4 and out medially to the remaining facet joint. The ligament was thick. The dura was then exposed. The dura was in good repair. The L3 nerve was then traced with a curette out the L3/4 foramen and found to be adequately decompressed. The L4 nerve was traced with a curette around the L4 pedicle. The lateral recess was opened with a kerrison helping to further decompress the L4 nerve. Wound is then irrigated copiously with saline and surgiflo is used to stop any bleeding. The tubular retractor is removed A skin incision is made over the L4/5 level. This is confirmed under c-arm guidance. A series of dilators are passed and the tubular retractor is docked on the L4 lamina. A bovie is used to clear the soft tissue off the lamina and the L 4/5 facet joint. A high speed carline is then used to perform the laminectomy and take down the medial aspect of the L 4/5 facet joint. A kerrison rongeure was then used to take down the remaining lamina and smooth the edge of the laminectomy up to the point where the ligamentum flavum attaches. Attention was then brought to the medial aspect of the facet joint. The remaining medial aspect of the superior and inferior aspect of the facet joint were taken down with the kerrison from the pedicle of L4 to L 5. The facet joint had significant hypertrophy. Attention was then brought to the Ligamentum Flavum. The ligament was taken down from the lamina of L4 to L5 and out medially to the remaining facet joint. The ligament was thick. The dura was then exposed. The dura was in good repair. The L4 nerve was then traced with a curette out the L4/5 foramen and found to be adequately decompressed. The L5 nerve was traced with a curette around the L5 pedicle. The lateral recess was opened with a kerrison helping to further decompress the L5 nerve. Wound is then irrigated copiously with saline and surgiflo is used to stop any bleeding. The tubular retractor is removed and the wound is closed with vicryl and monocryl suture. Glue is then used to protect the wound. A sterile dressing is then placed. Patient was then placed in the supine position and transferred to the PACU in stable condition.
[2024-12-21] MEDS: ondansetron 2 mg/ML SDV 2 mL 4 MG (14:07)
[2024-12-21] MEDS: fentaNYL 50 mcg/mL INJ 2mL IVP (14:55)
[2024-12-21] MEDS: HYDROcodone-acetaminophen 5-325 mg Tablet 1 TAB PO (15:01)
[2024-12-21 21:21] LABS: Glucose Point of Care 171 mg/dL (70-110)
== END 2024-12-21 15:28 | disposition home or self-care (01) ==
PROVIDERS: PCP Nurse Practitioner Family; Visit Provider Orthopaedic Surgery
PROC: (CPT 63005; principal; 2024-12-21 11:55)
DX: M48.062 Spinal stenosis, lumbar region with neurogenic claudication (principal); I10 Essential (primary) hypertension; E78.5 Hyperlipidemia, unspecified; Z87.891 Personal history of nicotine dependence; K21.9 Gastro-esophageal reflux disease without esophagitis; Z82.49 Family history of ischemic heart disease and other diseases of the circulatory system; G47.33 Obstructive sleep apnea (adult) (pediatric); E11.9 Type 2 diabetes mellitus without complications
CPT/HCPCS: 63047; 63048; 36416; 72020; 76000; 82962; J0690; J2405; J3010; J7030; J9999

== ENCOUNTER 2025-01-01 05:00 | Outpatient (RCR) | payer MEDICARE, SELFPAY | END 2025-01-30 23:59 | disposition home or self-care (01) | LOC: GPT 05:00 | PROVIDERS: PCP Nurse Practitioner Family; Visit Provider Student in an Organized Health Care Education/Training Program | DX: M25.511 Pain in right shoulder (principal) | CPT/HCPCS: 97110; 97112; 97140; 97161 ==

== ENCOUNTER → 2025-01-03 09:16 | Outpatient (BNVA) | payer MEDICARE, SELFPAY | PROVIDERS: PCP Nurse Practitioner Family; Visit Provider Student in an Organized Health Care Education/Training Program | DX: M75.41 Impingement syndrome of right shoulder (principal); M75.111 Incomplete rotator cuff tear or rupture of right shoulder, not specified as traumatic; M19.011 Primary osteoarthritis, right shoulder | CPT/HCPCS: 20610; 73030; 99204; J3301; J9999 ==

== ENCOUNTER → 2025-01-05 08:39 | Outpatient (BNVA) | payer MEDICARE, SELFPAY | PROVIDERS: PCP Nurse Practitioner Family; Visit Provider Orthopaedic Surgery | DX: Z98.890 Other specified postprocedural states (principal) | CPT/HCPCS: 99024 ==

== ENCOUNTER → 2025-01-16 09:14 | Outpatient (BNVA) | payer MEDICARE, SELFPAY | PROVIDERS: PCP Nurse Practitioner Family; Visit Provider Nurse Practitioner Family | DX: R35.0 Frequency of micturition (principal) | CPT/HCPCS: 81000 ==

== ENCOUNTER 2025-01-31 05:00 | Outpatient (RCR) | payer MEDICARE, SELFPAY | END 2025-03-02 23:59 | disposition home or self-care (01) | LOC: GPT 05:00 | PROVIDERS: PCP Nurse Practitioner Family; Visit Provider Student in an Organized Health Care Education/Training Program | DX: M25.511 Pain in right shoulder (principal) | CPT/HCPCS: 97110; 97112; 97140 ==

== ENCOUNTER → 2025-02-02 08:23 | Outpatient (BNVA) | payer MEDICARE, SELFPAY | PROVIDERS: PCP Nurse Practitioner Family; Visit Provider Orthopaedic Surgery | DX: Z98.890 Other specified postprocedural states (principal) | CPT/HCPCS: 99024 ==

== ENCOUNTER → 2025-02-15 09:45 | Outpatient (BNVA) | payer MEDICARE, SELFPAY | PROVIDERS: PCP Nurse Practitioner Family; Visit Provider Nurse Practitioner Family | DX: E11.9 Type 2 diabetes mellitus without complications (principal); I10 Essential (primary) hypertension; E55.9 Vitamin D deficiency, unspecified | CPT/HCPCS: 80053; 80061; 82043; 82306; 83036 ==

== ENCOUNTER 2025-03-03 05:00 | Outpatient (RCR) | payer MEDICARE, SELFPAY | END 2025-04-02 23:59 | disposition home or self-care (01) | LOC: GPT 05:00 | PROVIDERS: PCP Nurse Practitioner Family; Visit Provider Student in an Organized Health Care Education/Training Program | DX: M25.511 Pain in right shoulder (principal) | CPT/HCPCS: 97110; 97112; 97140; 97164 ==

== ENCOUNTER → 2025-03-16 10:30 | Outpatient (BNVA) | payer MEDICARE, SELFPAY | PROVIDERS: PCP Nurse Practitioner Family; Visit Provider Orthopaedic Surgery | DX: Z98.890 Other specified postprocedural states (principal) | CPT/HCPCS: 99024 ==

== ENCOUNTER 2025-04-03 05:00 | Outpatient (RCR) | payer MEDICARE, SELFPAY | END 2025-05-02 23:59 | disposition home or self-care (01) | LOC: GPT 05:00 | PROVIDERS: PCP Nurse Practitioner Family; Visit Provider Student in an Organized Health Care Education/Training Program | DX: M25.511 Pain in right shoulder (principal) | CPT/HCPCS: 97110; 97535 ==

== ENCOUNTER → 2025-04-05 08:42 | Outpatient (BNVA) | payer MEDICARE, SELFPAY | PROVIDERS: PCP Nurse Practitioner Family; Visit Provider Student in an Organized Health Care Education/Training Program | DX: M75.41 Impingement syndrome of right shoulder (principal); M75.111 Incomplete rotator cuff tear or rupture of right shoulder, not specified as traumatic | CPT/HCPCS: 99213 ==

== ENCOUNTER → 2025-05-26 08:49 | Outpatient (BNVA) | payer MEDICARE, SELFPAY | PROVIDERS: PCP Nurse Practitioner Family; Visit Provider Nurse Practitioner Family | DX: E11.9 Type 2 diabetes mellitus without complications (principal); R35.0 Frequency of micturition | CPT/HCPCS: 81000 ==

== ENCOUNTER → 2025-07-11 11:23 | Outpatient (BNVA) | payer MEDICARE, SELFPAY | PROVIDERS: PCP Nurse Practitioner Family; Visit Provider Nurse Practitioner Family | DX: J98.8 Other specified respiratory disorders (principal); J39.8 Other specified diseases of upper respiratory tract | CPT/HCPCS: 87400; 87426 ==